=== PATIENT | female | born 1980 | race African-American/Black ===

== ENCOUNTER 2016-05-28 11:18 | Emergency (ER) ==
[2016-05-28] MEDS ORDERED: XYLOCAINE 1%/EPI 1:100,000 INJ ONE (11:54)
[2016-05-28] MEDS ORDERED: MARCAINE 0.5% INJ ONE (11:55)
[2016-05-28] MEDS ORDERED: NAPROSYN PO ONE (11:57)
[2016-05-28] MEDS ORDERED: ROBAXIN PO ONE (11:57)
[2016-05-28] MEDS ORDERED: NAPROSYN ONE (12:05)
[2016-05-28] MEDS ORDERED: MARCAINE 0.5% PF ONE (12:05)
--- NOTE | 2016-05-28 12:23 | PROVIDER DOCUMENTATION ---
HPI-General Adult - General Source: patient - History of Present Illness -Gen Adult Nature of Presenting Problems: PT STATES "I WORK A [employer] AND I HAVE BEEN HAVING PAIN IN MY NECK,LEFT SHOULDER AND MIDDLE OF MY CHEST X2 DAYS'. Location of Pain/Injury: reports: neck Pain Radiation: reports: chest, shoulder(s) Quality of Pain: reports: aching Severity: reports: mild Onset/Duration: reports: 2 days ago Timing: reports: still present Context/Activities at Onset: reports: none Modifying Factors: improves with: movement, palpation Associated Symptoms: reports: chest pain. denies: dizziness, fever/chills, nausea, shortness of breath, pain with inspiration, vomiting Similar Symptoms Previously?: No Recently seen or treated by another doctor?: No <Braeden Doyle - Last Filed: 05/28/16 12:18> <Brendan Rivas - Last Filed: 05/28/16 12:32> - General Chief Complaint: General Adult Stated Complaint: L ARM/JAW/SHOULDER/NECK PAIN Time Seen by Provider: 05/28/16 11:45 Allergies/Adverse Reactions: Patient Allergies Allergy/AdvReac Type Severity Reaction Status Date / Time No Known Allergies Allergy Verified 05/04/12 08:47 Home Medications: Home Medication List Medication Instructions Recorded Confirmed Last Taken Type Methocarbamol [Robaxin-750] 750 mg PO BID PRN #60 tablet 05/28/16 Unknown Rx Naproxen 500 mg PO BID PRN PRN #60 tablet 05/28/16 Unknown Rx Review of Systems - Adult - REVIEW OF SYSTEMS - ADULT Constitutional: denies: chills, fever, night sweats Eyes: denies: discharge, blurred vision, double vision Cardiovascular: reports: chest pain. denies: irregular heart rate, palpitations Respiratory: denies: cough, shortness of breath, wheezing Gastrointestinal: denies: abdominal pain, nausea, vomiting Genitourinary: denies: dysuria, flank pain, hematuria Musculoskeletal: reports: neck pain. denies: back pain, muscle aches Integumentary: denies: hives, itching, rash Neurological: denies: dizziness/vertigo, headache/migraines, numbness, syncope Psychiatric: denies: anxiety, emotional problems, suicidal thoughts All Other Systems: Reviewed and Negative <Braeden Doyle - Last Filed: 05/28/16 12:18> Past History - Adult - PAST MEDICAL HISTORY-ADULT Review of Records: reports: Old Records Reviewed, Nursing Assessment Review, Medications Reviewed Major Childhood Illnesses: reports: denies history - PRIOR SURGERIES/PROCEDURES Surgical/Procedure History: reports: none - PRIOR HOSPITALIZATIONS Prior Hospitalizations: reports: none - IMMUNIZATION STATUS Childhood Immunizations: See Nurse Assessment Flu Vaccine: See Nurse Assessment - SOCIAL HISTORY Smoking: denies Substance Use: none/never Alcohol Use Frequency: occasionally Number of drinks per typical drinking period:: 2 drinks Living Situation: family <Ralph Doyleathan - Last Filed: 05/28/16 12:18> Physical Exam-General - PHYSICAL EXAM-ADULT Initial Vital Signs Reviewed: Yes - CONSTITUTIONAL General Appearance: appears well, alert, no apparent distress - NECK Neck: full range of motion, supple, normal inspection - RESPIRATORY Respiratory: chest non-tender, lungs clear, normal breath sounds, no pleuratic chest pain, no respiratory distress, no accessory muscle use - CARDIOVASCULAR Cardiovascular: normal peripheral pulses, regular rate, rhythm, no edema, no gallop, no JVD, no murmur - GASTROINTESTINAL (ABDOMEN) Abdominal Exam: normal bowel sounds, non tender, soft, no organomegaly, no pulsatile mass - MUSCULOSKELETAL Extremity: normal range of motion, non-tender, normal gait, normal inspection - SKIN Integumentary: normal color, normal turgor, warm/dry - PSYCHIATRIC Psych/Mental Status: normal mood/affect, normal thought content, normal thought process, oriented x 3 <Yanira,Braeden - Last Filed: 05/28/16 12:18> Progress - REASSESSMENT Reassessment #1 Time Reassessed: 12:30 Status: improving (complet relief of 10 ml local anethic injection into the left trapezius muscle trigger point and the other trigger poins got instantly better and she could return to work) <Brendan Rivas - Last Filed: 05/28/16 12:32> Procedures - ADDITIONAL PROCEDURES Time-Out Verification Completed?: Yes Site Prep: Hibiclens Anesthetic: 0.5%, 1%, Lidocaine/Xylocaine, Bupivicaine/Marcaine Volume of Anesthetic (ml's): 5 (of each) Procedure Comment: 5 ml of a mixture of marcaine and lidociane domi was injected into her left <Brendan Rivas - Last Filed: 05/28/16 12:32> Departure <Braeden Doyle - Last Filed: 05/28/16 12:18> - Departure Time of Disposition Order: 12:29 Certified Medical Emergency: Emergent <Brendan Rivas - Last Filed: 05/28/16 12:32> - Departure DIAGNOSIS: Myofascial pain Disposition: HOME 01 Condition: Stable Additional Instructions: ED Follow Up Instructions: You have been treated by a care provider in the Emergency Department. These instructions are being provided to you so you can have an understanding of how to care for yourself upon discharge. Upon discharge from the Emergency Department, you are responsible for making arrangements for follow-up care by a physician of your choice. Take all prescribed medications as directed. Return to the Emergency Department immediately for any new or worsening symptoms. You may call the Physician Referral phone number at [phone] to obtain a list of Physicians who are taking new patients. Prescriptions: Naproxen 500 mg PO BID PRN PRN #60 tablet PRN Reason: Pain Methocarbamol [Robaxin-750] 750 mg PO BID PRN #60 tablet PRN Reason: muscle spasm Physician Attestation
[2016-05-28 12:40] VITALS: BP 114/84
== END 2016-05-28 12:43 | disposition home or self-care (01) ==
LOC: P.ED 11:18
DX: M79.1 Myalgia (principal); R07.9 Chest pain, unspecified; M54.2 Cervicalgia; M25.512 Pain in left shoulder
CPT/HCPCS: S0020